=== PATIENT | male | born 1985 | race Caucasian/White ===

== ENCOUNTER 2017-08-24 15:11 | Emergency (ER) | payer OTHER ==
[~2017-08-24] VITALS: Ht 193 cm; Wt 108.9 kg
[2017-08-24 16:10] VITALS: BP 99/52
== END 2017-08-24 16:10 | disposition home or self-care (01) ==
LOC: ED 15:11
DX: Z46.6 Encounter for fitting and adjustment of urinary device (principal)

== ENCOUNTER 2020-02-25 11:56 | Emergency (ER) | payer OTHER, SELFPAY ==
[~2020-02-25] VITALS: Ht 172.7 cm; Wt 72.6 kg
[2020-02-25 11:57] VITALS: Ht 172.7 cm; Wt 72.6 kg
[2020-02-25 12:35] VITALS: BP 105/56
== END 2020-02-25 12:35 | disposition home or self-care (01) ==
LOC: ED 11:56
DX: U07.1 COVID-19 (principal); F41.9 Anxiety disorder, unspecified; Z88.1 Allergy status to other antibiotic agents